=== PATIENT | female | born 1960 | race Caucasian/White ===

== ENCOUNTER → 2017-02-26 | Outpatient (CLI) | payer OTHER ==
[~2017-02-26] MED LIST: IBUPROFEN600 MG PO; LORTAB 10/500 T1 TAB; NORCO 5/325 TAB1 TAB PO; NORVASC; ULTRAM PO; ZYRTEC
--- NOTE | ~2017-02-26 | MR103 ---
[facility] A Service of [facility] RADIOLOGY TEXT RESULTS PATIENT: TREV CARRILLO LOCATION: [facility] : 56 UNIT #: [id number] AGE: [address]: Emerson Doherty MD SEX: F ORDER DR: [id number] [facility] [address] [place], [place] [address] [id number] O MR#: [id number] Acc #: [id number] NAME: TREV CARRILLO : 1960 SEX: F STUDY DATE/TIME: 02/26/2017 10:38 UNIT: [facility] ROOM: STUDY DESCRIPTION: MR Knee Wo Contrast Lt Attending Physician: Emerson Doherty M.D. Referring Physician: Emerson Doherty M.D. Ordering Physician: Emerson Doherty M.D. Primary Care Physician: Braxton Baker M.D. [facility] REPORT This report is preliminary unless electronic signature is present. EXAM Left knee MRI without contrast, 02/26/2017. HISTORY 56-year-old female with left knee pain status post fall off ladder a few years ago. Worsening pain since injury. Patient also states fall a couple of months ago. No prior left knee surgery COMPARISON Left knee x-rays, 01/04/2017. TECHNIQUE Routine, unenhanced, multiplanar, multisequence, high-field MR imaging of the left knee was performed. FINDINGS The menisci are intact. Cruciate and collateral ligaments are intact. Extensor mechanism is intact. No significant joint effusion. No popliteal cyst. There is mild edema noted in the medial aspect of Hoffa fat pad, which is nonspecific. This could be secondary to direct trauma with soft tissue contusion or Hoffa's syndrome. There is also some minimal inflammation of the deep infrapatellar bursa. Patellofemoral articular cartilage appears intact. Lateral compartment articular cartilage is intact. There is some moderate-grade chondromalacia along the posterior weightbearing medial femoral condyle. Remainder of the bone marrow signal is within expected limits. Visualized musculature is unremarkable. IMPRESSION [facility] A Service of [facility] & [facility] RADIOLOGY TEXT RESULTS PATIENT: TREV CARRILLO [facility] 56 UNIT #: [id number] AGE: [address]: Emerson Doherty MD SEX: F ORDER DR: 1. No evidence of a meniscus tear or acute ligament injury. 2. Nonspecific edema in the medial aspect of Hoffa fat pad. This could potentially be seen in the setting of direct trauma with soft tissue contusion or Hoffa's syndrome. There is also minimal inflammation of the deep infrapatellar bursa. Correlation for area of pain recommended. 3. Moderate-grade chondromalacia posterior weightbearing medial femoral condyle. Dictated by... Sulaiman Dueñas M.D. THIS IS AN ELECTRONICALLY VERIFIED REPORT Sulaiman Dueñas M.D. at 03/02/2017 2:22 PM DANIA/uyen TD: 03/01/2017 20:13 JOB #: [id number] [facility] REPORT Page 1 of 1 COPY
== END | disposition home or self-care (01) ==
LOC: CMRI 09:28
DX: M25.562 Pain in left knee (principal); M94.262 Chondromalacia, left knee; R60.0 Localized edema
CPT/HCPCS: 73721